=== PATIENT | male | born 1980 | race Caucasian/White ===

== ENCOUNTER 2017-07-12 14:12 | Emergency (ER) | payer OTHER ==
[~2017-07-12] VITALS: Ht 182.9 cm; Wt 78.0 kg
[~2017-07-12 14:12] MED LIST: DICL75 PO
[2017-07-12 14:59] VITALS: BP 172/80; PULSE 89; RESP 18; TEMP 97.8; O2SAT 95
[2017-07-12] MEDS ORDERED: ONDANSETRON ODT 4 MG TAB PO ONE (15:00)
[2017-07-12] MEDS ORDERED: MORPHINE SULFATE 2 MG/ML INJ IV PUSH ONE (15:00)
[2017-07-12] MEDS ORDERED: OXYC-103 PO (15:52)
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
[2017-07-12] MEDS ORDERED: DICL75TA PO (16:40)
[2017-07-12] MEDS ORDERED: KETOROLAC TROMETHAMINE 60 MG/2 ML (IM) VIAL IM ONE (16:45)
[2017-07-12] MEDS ORDERED: LORazepam 2 MG TAB PO ONE (16:45)
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
== END 2017-07-12 16:56 ==
LOC: NEPE 14:12
DX: S30.0XXA Contusion of lower back and pelvis, initial encounter (principal); S97.82XA Crushing injury of left foot, initial encounter; Y03.0XXA Assault by being hit or run over by motor vehicle, initial encounter
CPT/HCPCS: 72110; 73610; 73630; 96372; 99284; E0113; J1885; J2270